=== PATIENT | female | born 1945 | race African-American/Black ===

== ENCOUNTER 2016-10-08 07:59 | Inpatient (IN) | payer MEDICARE, BC ==
[~2016-10-08] VITALS: Ht 162.6 cm; Wt 73.5 kg
[2016-10-08] MEDS ORDERED: METF500T PO (08:27)
[2016-10-08] MEDS ORDERED: NAPR220T95 PO (08:27)
[2016-10-08] MEDS ORDERED: ASPI-110 PO (08:27)
[2016-10-08] MEDS ORDERED: LEVO50TA4 PO (08:27)
[2016-10-08] MEDS ORDERED: RANI150C PO (08:27)
[2016-10-08] MEDS ORDERED: FEXO15TA PO (08:27)
[2016-10-08] MEDS ORDERED: MULT1TAB84 PO (08:27)
[2016-10-08] MEDS ORDERED: BIOT50005 PO (08:27)
[2016-10-08] MEDS ORDERED: BISO2.5T4 PO (08:27)
[2016-10-08] MEDS ORDERED: VITA100T15 PO (08:27)
[2016-10-08] MEDS ORDERED: DOCU100C PO (08:28)
[2016-10-18] MEDS ORDERED: ceFAZolin 2 GM PREMIX 50 ML ONE (06:04)
[2016-10-18] MEDS: EXPAREL PERI-ARTICULAR INJECTION (TOTAL VOL. 60 ML) P-ARTICULR SCH ×4 (06:15→07:45)
[2016-10-18] MEDS ORDERED: METOPROLOL TARTRATE 25 MG TAB PO PRN (06:15)
[2016-10-18] MEDS: SODIUM CHLORIDE 0.9% IV SCH ×2 (06:15→07:15)
[2016-10-18] MEDS ORDERED: SODIUM CHLORID 0.9% 500 ML IV SCH (06:15)
[2016-10-18] MEDS ORDERED: ceFAZolin 2 GM PREMIX 50 ML IV SCH (06:15)
[2016-10-18] MEDS: CHLORHEXIDINE GLUCONATE 4% SOLN 120 ML BTL TOP SCH (06:15)
[2016-10-18] MEDS: TRANEXAMIC ACID IV SCH ×2 (06:15→07:15)
[2016-10-18] MEDS ORDERED: INSULIN HUMAN REGULAR 1,000 UNITS/10 ML VIAL SQ PRN (06:15)
[2016-10-18 06:17] VITALS: BP 113/69; PULSE 61; RESP 16; TEMP 97.5; O2SAT 100
[2016-10-18] MEDS: LACTATED RINGER'S 1000 ML IV SCH (06:20)
[2016-10-18] MEDS ORDERED: GENTAMICIN SULFATE 80 MG/2 ML VIAL IRRIGATION ONE (07:45)
[2016-10-18] MEDS ORDERED: TRANEXAMIC ACID IV SCH ×2 (09:15→10:15)
[2016-10-18] MEDS ORDERED: SODIUM CHLORIDE 0.9% IV SCH ×2 (09:15→10:15)
[2016-10-18] MEDS ORDERED: BISACODYL 10 MG SUPP PR PRN (09:45)
[2016-10-18] MEDS ORDERED: MORPHINE SULFATE 8 MG/ML INJ IV PUSH PRN (09:45)
[2016-10-18] MEDS ORDERED: ONDANSETRON HCL 4 MG/2 ML VIAL IVP PRN (09:45)
[2016-10-18] MEDS ORDERED: FAMOTIDINE 20 MG TAB PO PRN (09:45)
[2016-10-18] MEDS ORDERED: DOCUSATE SODIUM 100 MG CAP PO PRN (09:45)
[2016-10-18] MEDS ORDERED: SODIUM CHLORIDE 0.9% FLUSH 5 ML FLUSH IVF PRN (09:45)
[2016-10-18] MEDS ORDERED: ZOLPIDEM TARTRATE 5 MG TAB PO PRN (09:45)
[2016-10-18] MEDS ORDERED: ACETAMINOPHEN/HYDROcodone 325 MG/7.5 MG TAB PO PRN ×2 (09:45)
[2016-10-18] MEDS ORDERED: Post-op Orders (for Pharmacy) MISC XX ONE (09:45)
[2016-10-18] MEDS ORDERED: MAGNESIUM HYDROXIDE SUSP 30 ML CUP PO PRN (09:45)
[2016-10-18] MEDS ORDERED: LORATADINE 10 MG TAB PO PRN (10:00)
[2016-10-18] MEDS ORDERED: PILL SPLITTER OTHER PRN (10:00)
[2016-10-18] MEDS: KETOROLAC TROMETHAMINE 30 MG/ML (IVP) VIAL IVP SCH ×3 (10:00→21:45)
[2016-10-18] MEDS: LACTATED RINGER'S 1000 ML INJ 1,000 ML IV SCH (10:23)
[2016-10-18] MEDS ORDERED: DO NOT ADM ANY ANTICOAGULANT DRUGS XX PRN (10:30)
--- NOTE | 2016-10-18 10:32 | RADRPT ---
EXAM DATE/TIME: 10/18/2016 09:55 [place] COMPARISON: No previous studies available for comparison. INDICATIONS : Post op left hip. MEDICAL HISTORY : Diabetes mellitus type II. Hypertension SURGICAL HISTORY : Colon resection. Right knee scope, left hip replacement. ENCOUNTER: Subsequent ACUITY: 1 day PAIN SCORE: 10/10 LOCATION: Left hip FINDINGS: A two view examination of the left hip was performed. There is placement of total hip prosthesis whi ch appears to be well seated with a small amount of air in superficial soft tissues CONCLUSION: Total hip prosthesis well seated Noe Kang MD on October 18, 2016 at 10:30 Board Certified Radiologist. This report was verified electronically.
--- NOTE | 2016-10-18 10:43 | MP ---
cc: Uma ROWLEY. DATE OF SURGERY: 10/18/2016 PREOPERATIVE DIAGNOSIS Primary osteoarthritis, left hip. POSTOPERATIVE DIAGNOSIS Primary osteoarthritis, left hip. OPERATION PERFORMED Left total hip arthroplasty with Serina prosthesis. SURGEON Adalgisa Rowley MD PRODUCT TECHNICIAN Trish Ordonez, CSFA ANESTHESIA Spinal with supplemental local. INDICATIONS AND FINDINGS This 71-year-old woman has had left hip pain since the . For the past five years she has had progressive worsening of her pain to the point that she has marked limitation of walking. She has pain on motion. She has catching sensation. She has limitation of motion. She has rest pain as well. Treatment has included analgesics, anti-inflammatory agents, activity modification, exercise, ambulatory aids and weight loss. Physical findings showed limited range of motion with crepitation on motion and tenderness on motion. She had an antalgic gait with a positive Marcos test. X-rays showed significant arthritis in the hip with loss of articular cartilage to expose subchondral bone, possibility of some protrusio, eburnation, osteophytes. IMPLANTS The prosthesis used was a Cantrall prosthesis with the acetabular component being a tritanium hemispherical cluster hole cup size 50 mm outer diameter with an X3 Trident polyethylene insert, size 32 mm inner diameter 0 degree. There were three cancellus screws used. In addition, the femoral component was an Accolade II, stem size 3 x 132 degrees. The femoral head was a Biolox Delta head, 32 mm outer diameter with a +4 mm neck length. PROCEDURE The patient was brought to the operating room and a spinal anesthetic was administered. She received prophylactic antibiotics in the form of Ancef and also received tranexamic acid according to protocols. She was then placed in a lateral position with an axillary roll under the right shoulder. The left shoulder was up. The positioning was done on a Protonet lateral positioner. The patient was then prepped with alcohol, Hibiclens and ChloraPrep, and draped in the usual manner with the hip draped free. An appropriate timeout procedure was carried out. Local anesthesia was administered into the incision site which was marked prior to the incision. The incision was then made centered over the posterior aspect of the greater trochanter tip and was approximately 10-12 cm in length. The incision was deepened through subcutaneous tissues to the fascia jade and gluteus fascia which were incised in line with the fibers and the skin incision. A Charnley retractor was inserted with wound towels. The hip was internally rotated. The external rotators were released off the posterior aspect of the greater trochanter along with posterior capsule which was opened with a posteriorly based flap. The hip was exposed. The hip was dislocated. The femoral neck was then transected at the appropriate level with the oscillating saw. The configuration of the neck was inspected. A rongeur was used to remove osteophytes. The box osteotome was used to initiate opening of the canal followed by further opening with a rongeur. A canal finding curet was used to open this further. Broaching was then started at size 0 and went in one size increments up to size 3. A size 3 appeared to be appropriate and was seated appropriately. Calcar planing was carried out. The hip was then repositioned. The acetabulum was exposed. Reaming of the acetabulum started at 44 mm and went in 1 mm increments up to size 50. At size 50 the trial prosthesis was impacted into place and appeared appropriate. A 50 mm cup was chosen. The acetabulum was irrigated. The cup was then impacted into place and seated appropriately. When it was seated fenestration drill holes were made through the three fenestrations in the cup. Appropriate size screws were inserted for each. The 0 degree liner for a 32 mm inner diameter was inserted into place and seated appropriately. A trial reduction was then carried out ultimately appearing to be appropriate for a +4 mm neck length. The broach was removed. The actual prosthesis which was a size 3 x 132 degrees was impacted into place and seated appropriately. Local anesthesia was administered throughout the hip prior to placement of the femoral component. Trial reduction was carried out with a +4 mm trial. This appeared appropriate. After cleaning the trunnion the +4 mm neck length, 32 mm diameter Biolox Delta head was impacted onto the trunnion. The hip was reduced. The range of motion was excellent. The stability was excellent. There was no pistoning. The leg lengths appeared appropriate. Wound closure then commenced using #1 Vicryl interrupted transosseous Krackow sutures for repair of the capsule and external rotators. The sciatic nerve had been inspected prior to the procedure and was protected throughout the procedure. The fascia jade and gluteus fascia were repaired with #1 Vicryl interrupted [id number] sutures. The remainder of the Exparel was injected. The subcutaneous tissue was closed with 2-0 Vicryl interrupted simple sutures with buried knots. The skin was closed with continuous subcuticular closure of 4-0 Monocryl. The wound was then dressed with Steri-Strips followed by dry dressing, ABD pad and Medipore compression dressing. The patient was transferred from the operating room to the recovery room in satisfactory condition having tolerated the procedure well. Counts were correct. Specimens none. Estimated blood loss 200 mL. MD MARTHA Chavis/BHAVANA /9:44 AM /10:26 AM
[2016-10-18] MEDS ORDERED: LACTATED RINGER'S 1000 ML INJ 1,000 ML IV ONE (12:00)
[2016-10-18] MEDS ORDERED: PROPOFOL 200 MG/20 ML AMP IV ONE (12:00)
[2016-10-18] MEDS ORDERED: NORMOSOL R INJ 1,000 ML IV ONE (12:00)
[2016-10-18] MEDS ORDERED: ONDANSETRON HCL 4 MG/2 ML VIAL IV PUSH ONE (12:00)
[2016-10-18 13:13] VITALS: BP 123/66; PULSE 75; RESP 16; TEMP 95.7; O2SAT 98
[2016-10-18 16:00] VITALS: BP 124/61; PULSE 69; RESP 16; TEMP 95.8; O2SAT 100
[2016-10-18 20:09] VITALS: BP 115/55; PULSE 71; RESP 19; TEMP 97.4; O2SAT 100
[2016-10-18] MEDS: ASPIRIN EC 81 MG TABEC PO SCH (21:47)
[2016-10-18] MEDS: SENNOSIDES 8.6 MG TAB PO SCH (21:48)
[2016-10-18] MEDS: MAGNESIUM HYDROXIDE SUSP 30 ML CUP PO SCH (21:48)
[2016-10-18] MEDS: SODIUM CHLORIDE 0.9% FLUSH 5 ML FLUSH IVF SCH (21:50)
[2016-10-19 00:08] VITALS: BP 121/69; PULSE 74; RESP 18; TEMP 97.5; O2SAT 98
[2016-10-19] MEDS: KETOROLAC TROMETHAMINE 30 MG/ML (IVP) VIAL IVP SCH ×4 (03:12→21:21)
[2016-10-19 04:11] VITALS: BP 142/71; PULSE 71; RESP 19; TEMP 96.9; O2SAT 100
[2016-10-19] MEDS: LEVOTHYROXINE SODIUM 50 MCG TAB PO SCH (06:00)
[2016-10-19 06:02] LABS: HEMATOCRIT 32.6 % (35.0-46.0); MEAN CELL VOLUME 88.4 FL (80.0-100.0); MEAN CORPUSCULAR HEMOGLOBIN 30.4 PG (27.0-34.0); MEAN CORPUSCULAR HGB CONC 34.4 % (32.0-36.0); PLATELET COUNT 228 TH/MM3 (150-450); RED BLOOD COUNT 3.69 MIL/MM3 (4.00-5.30); RED CELL DISTRIBUTION WIDTH 14.4 % (11.6-17.2); REVIEW FLAG FINAL
[2016-10-19] MEDS: LACTATED RINGER'S 1000 ML IV SCH (06:15)
[2016-10-19] MEDS: CHLORHEXIDINE GLUCONATE 4% SOLN 120 ML BTL TOP SCH (06:15)
--- NOTE | 2016-10-19 06:22 | PD.ORT.PN ---
Subjective Post Op Day #: 1 Subjective Remarks Doing well. She has had no pain. Distance Walked 50 feet. Objective Vitals Vital Signs Date Time Temp Pulse Resp B/P Pulse Ox O2 Delivery O2 Flow Rate FiO2 10/19/16 04:11 96.9 71 19 142/71 100 10/19/16 00:08 97.5 74 18 121/69 98 10/18/16 20:09 97.4 71 19 115/55 100 10/18/16 16:00 95.8 69 16 124/61 100 10/18/16 13:13 95.7 75 16 123/66 98 10/18/16 12:30 98.3 65 14 115/70 96 Room Air 10/18/16 12:30 98.3 10/18/16 12:15 70 13 124/70 98 Room Air 10/18/16 12:00 63 12 120/70 95 Room Air 10/18/16 11:45 59 14 125/73 97 Room Air 10/18/16 11:30 62 13 138/74 97 Room Air 10/18/16 11:15 55 12 130/78 96 Room Air 10/18/16 11:00 96.6 10/18/16 11:00 54 12 145/84 97 Room Air 10/18/16 10:45 56 12 146/78 96 Room Air 10/18/16 10:30 96.0 10/18/16 10:30 69 13 169/78 99 Room Air 10/18/16 10:15 60 12 157/89 99 Nasal Cannula 2 10/18/16 10:00 66 14 138/86 96 Nasal Cannula 2 10/18/16 09:40 96.4 103 15 128/78 100 Nasal Cannula 2 I/O 10/18/16 10/18/16 10/18/16 10/19/16 10/19/16 10/19/16 07:00 15:00 23:00 07:00 15:00 23:00 Intake Total 2040 ml 480 ml Output Total 200 ml Balance 1840 ml 480 ml Intake Oral 540 ml 480 ml Other 1500 ml Output Estimated Blood Loss 200 ml # Voids 1 4 # Bowel Movements 0 0 Result Diagram: 10/19/16 0533 Imaging Hip x-ray looks good. Last 72 hours Impressions Hip X-Ray 10/18/16 0000 Signed Impressions: Service Date/Time: Tuesday, October 18, 2016 09:55 - CONCLUSION: Total hip prosthesis well seated Noe Kang MD Objective Remarks She is resting comfortably, supine in bed. The dressing is dry and intact. The neurovascular status is intact. Assessment & Plan Ortho Post Op Day #: 1 Problem List: (1) Status post total replacement of left hip Plan: Continue postop care and PT. Assessment and Plan Orthopaedically stable. Condition: Good. DVT prophylaxis: KARINA stockings, sequentials, ASA. Discharge plans: Home with [facility]. Has appointment. Adalgisa Feldman MD (Charles) Oct 19, 2016 06:22
[2016-10-19 06:27] LABS: BICARBONATE 27.5 MEQ/L (21.0-32.0); POTASSIUM 3.7 MEQ/L (3.5-5.1)
[2016-10-19] MEDS ORDERED: HYDR-3580 PO (06:40)
[2016-10-19 08:12] VITALS: BP 122/58; PULSE 70; RESP 16; TEMP 95.9; O2SAT 100
--- NOTE | 2016-10-19 08:25 | MB ---
cc: DEEPAK HAMILTON DATE OF CONSULTATION 10/18/16 DATE OF 1945 REASON FOR CONSULTATION Medical management. HISTORY OF PRESENT ILLNESS This is a pleasant 71-year-old black female who has struggled with hip pain since the according to her record. For the past 5 years she has progressively become worse with limited ambulation and increased pain. She has tried outpatient treatment which has included analgesics, anti-inflammatory agent, exercise, activity modification but feels that these therapies have not been advantageous to her. She had decided on a left total hip arthroplasty. She is currently in her room postoperative, sitting up in the chair, multiple family members in the room. She is alert, cooperative. Denies any chest pain, no shortness of breath. No headache. No acute pain at this point. She responds well to verbal stimuli and a good historian. PAST MEDICAL HISTORY Includes hypertension, osteoarthritis, hypothyroidism, occasional reflux and gastroesophageal reflux disease, anxiety disorder, musculoskeletal chest pain and shoulder pain. Diabetes mellitus type 2, takes oral hypoglycemics non-insulin dependent. PAST SURGICAL HISTORY Right knee scope, cervical cone biopsy. ALLERGIES No known. MEDICATIONS 1. Levothyroxine. 2. Biotin. 3. Vitamin B12. 4. Aspirin. 5. Multivitamins. 6. Zantac. 7. Metformin. 8. Hydrochlorothiazide. 9. Fexofenadine for allergies. SOCIAL HISTORY The patient lives alone, currently in her own place. Her daughter is here to stay with her for a few weeks postoperative. FAMILY HISTORY Heart disease, joint disease, hypertension, diabetes. No alcohol. No tobacco, no illicit drugs. REVIEW OF SYSTEMS A 12-point review was done. Currently all systems are negative except for some generalized weakness. She is status post left total knee hip arthroplasty. PHYSICAL EXAMINATION VITAL SIGNS: Temperature 98.3, pulse 75, respirations 16, blood pressure 123/66 and 115/70. The patient is on room air, O2 sat 98. HEENT: Atraumatic, normocephalic. PERRLA at two. Mucous membranes are pink and moist. She has no drainage or exudate. Neck is supple. Trachea is midline. CARDIOVASCULAR: S1-S2 with a regular rate and rhythm. No murmurs, rubs or gallops. Shows no edema and her pulses are intact. PULMONARY: Essentially clear anteriorly and posteriorly with no wheezes, rales or rhonchi. ABDOMEN: Abdomen is soft, nontender, nondistended. Active bowel sounds in all four quads. MUSCULOSKELETAL: She moves her extremities with purpose. Her hand implementation manager are equal. She does have some guarding towards that left hip but she can move her extremity and toes on command. SKIN: Skin is pink mucous membranes, warm and dry. NEUROLOGICALLY: She is alert, cooperative and a good historian. DIAGNOSTIC DATA Done on 10/08/2016 showed white count 5.3, hemoglobin 11.9, hematocrit 35.7, platelet count 248. Sodium 139, potassium 3.7, chloride 103, BUN 14, creatinine 0.99, fasting glucose was 105. Urine was yellow, clear, pH 5.5, specific gravity 1.011, negative protein, glucose, ketones, a trace of occult blood, negative nitrites and bilirubin. Negative leukocyte esterase. Culture was not indicated on the specimen. IMAGING STUDIES Imaging shows a total hip prosthesis, well seated. ASSESSMENT/PLAN The patient is status post left total hip arthroplasty, hypertension, hypothyroidism, gastroesophageal reflux disease, diabetes type 2. Our plan is to reconcile any medications needed for pain management and postop care will be per ortho, CBC and BMP will be done in the morning. Her vital signs are q. four as warranted. She has p.r.n. medications ordered for her bowel regimen. ASA for DVT prophylaxis. Pepcid for PUD prophylaxis. The patient is on a regular ADA diet, SCDs. Will monitor any nutritional needs, as well as vital signs. Currently, the patient is afebrile, blood pressure, pulse and respirations are within normal limits. We will monitor her labs in the morning and take care of any medical needs she has. Thank you very much for this consultation. Dictated by KASSIE Bhakta Deepak Hamilton MD JP/PENNY /3:45 PM /8:25 AM PT SEEN AND EXAMINED ON DAY OF ADMISSION WITH RN AT BEDSIDE CHART WAS REVIEWED PLAN OF CARE CHRISTINA VASQUEZ PT CHRISTINA RN SEE ORDERS MTDD
[2016-10-19] MEDS: HYDROCHLOROTHIAZIDE 25 MG TAB PO SCH (08:58)
[2016-10-19] MEDS: MAGNESIUM HYDROXIDE SUSP 30 ML CUP PO SCH ×2 (08:58→21:23)
[2016-10-19] MEDS: metFORMIN HCL 500 MG TAB PO SCH (08:58)
[2016-10-19] MEDS: ASPIRIN EC 81 MG TABEC PO SCH ×2 (08:59→21:22)
[2016-10-19] MEDS: MULTIVITAMINS/MINERALS THERAPEUTIC TAB PO SCH (08:59)
[2016-10-19] MEDS ORDERED: NON-FORMULARY DRUG (Biotin 5,000 MCG) PO SCH (09:00)
[2016-10-19] MEDS ORDERED: NON-FORMULARY DRUG (Bisoprolol-Hydrochlorothiazide 1 TAB) PO SCH (09:00)
[2016-10-19] MEDS: SODIUM CHLORIDE 0.9% FLUSH 5 ML FLUSH IVF SCH ×2 (09:02→21:23)
[2016-10-19] MEDS: BISOPROLOL FUMARATE 5 MG TAB PO SCH (09:05)
[2016-10-19] MEDS: LACTATED RINGER'S 1000 ML INJ 1,000 ML IV SCH ×2 (10:31→23:01)
[2016-10-19] MEDS ORDERED: GLUCAGON 1 MG/ML VIAL OTHER PRN (12:00)
[2016-10-19] MEDS ORDERED: DEXTROSE 50% IN WATER 50 ML VIAL(D50) IV PUSH PRN (12:00)
--- NOTE | 2016-10-19 12:00 | HHI.PR ---
Subjective Remarks Up in chair Appetite good Pain minimal No headache No shortness of breath Alert oriented (Padmini Spear) Objective Objective Results - Vital Signs Date Time Temp Pulse Resp B/P Pulse Ox O2 Delivery O2 Flow Rate FiO2 10/19/16 08:12 95.9 70 16 122/58 100 10/19/16 07:50 Room Air 10/19/16 04:11 96.9 71 19 142/71 100 10/19/16 00:08 97.5 74 18 121/69 98 10/18/16 20:09 97.4 71 19 115/55 100 10/18/16 16:00 95.8 69 16 124/61 100 10/18/16 13:13 95.7 75 16 123/66 98 10/18/16 12:30 98.3 65 14 115/70 96 Room Air 10/18/16 12:30 98.3 10/18/16 12:15 70 13 124/70 98 Room Air 10/18/16 12:00 63 12 120/70 95 Room Air I/O 10/18/16 10/18/16 10/18/16 10/19/16 10/19/16 10/19/16 07:00 15:00 23:00 07:00 15:00 23:00 Intake Total 2040 ml 480 ml 360 ml Output Total 200 ml Balance 1840 ml 480 ml 360 ml Intake Oral 540 ml 480 ml 360 ml Other 1500 ml Output Estimated Blood Loss 200 ml # Voids 1 4 2 # Bowel Movements 0 0 0 (Padmini Spear) Result Diagram: 10/19/1633 10/19/16 0533 ROS General: Fatigue (minimal), Other (10 point ROS done, and animal weakness otherwise other systems are negative) (Padmini Spear) Physical Exam Physical Exam PHYSICAL EXAMINATION GENERAL: This is a well-developed, well-nourished female who appears to be in no acute distress. She is alert and awake, responds readily. HEAD: Normocephalic without any lesion or mass noted. Facial features appear symmetric. OROPHARYNGEAL: Oropharynx without erythema or edema. NECK: Supple. No nuchal rigidity or lymphadenopathy. Trachea midline without deviation. CARDIAC: Regular rhythm, regular rate, S1 and S2 are heard. Murmur none; no gallops or rubs. LUNGS: Clear to auscultation bilaterally. No wheeze, rhonchi or rale. No use of accessory muscles on inspiration or expiration. ABDOMEN: Soft, nontender, no organomegaly or masses. Bowel sounds are heard in all four quadrants. No rebound. No guarding. EXTREMITIES: Trace edema left leg edema. Right lower leg no edema Pulses equal bilateral. cyanosis. SCDs on NEUROLOGICAL: Patient mood and affect appropriate. No focal deficit SKIN:Warm and moist Objective Remarks I'm feeling pretty good. Just need to get up with rehabilitation today and figure out what I need to do when I get home tomorrow (Padmini Spear) A/P Assessment and Plan ASSESSMENT/PLAN status post left total hip arthroplasty, hypertension, hypothyroidism, gastroesophageal reflux disease, diabetes type 2. reconcile any medications needed for pain management and postop care will be per ortho, Labs done this a.m. and reviewed much sugar 122. No other acute issues Her vital signs are q.four as warranted. She has p.r.n. medications ordered for her bowel regimen. ASA for DVT prophylaxis. Pepcid for PUD prophylaxis. The patient is on a regular ADA diet, SCDs. Will monitor any nutritional needs accuchecks achs added. Up in chair and having very minimal pain. She will be working with physical therapy today Discharge plan in the morning if everything stable Discussed With: Nurse, Family (patient and daughter), Other (Dr. Lee, she seen on her behalf) (Padmini Spear) Assessment and Plan patient seen and examined agree with above assessment and plan continue current care discussed with patient's family at bed side discussed with Padmini FERNANDO (Tamara Lee MD) Padmini Spear Oct 19, 2016 12:00 Tamara Lee MD Oct 19, 2016 14:30
[2016-10-19 12:15] VITALS: BP 108/65; PULSE 70; RESP 18; TEMP 97.4; O2SAT 98
[2016-10-19 16:00] VITALS: BP 118/64; PULSE 74; RESP 16; TEMP 98.4; O2SAT 97
[2016-10-19] MEDS ORDERED: ASPI81TA11 PO (17:20)
--- NOTE | 2016-10-19 17:26 | HHI.FF ---
Face to Face Verification Diagnosis: (1) Status post total replacement of left hip Physical Therapy Gait training Hip: Total hip, Protocol: Left, Posterior hip precautions, Progress to weight bearing Knee: Full weight bearing Canvas Knee Splint: When in bed & 2 pillows btw thighs Left LE Weight Bearing: WB as tolerated Left LE Range of Motion: Active ROM Nursing Nursing: Dressing changes Dressing Changes: Daily dressing change, Coverderm/Primapore Additional Instructions Remove steristrips on postop day 14. I have seen patient Aviva Fontaine on 10/19/16. My clinical findings support the need for the requested home health care services because: Ltd mobility - disease progression Limited ability to care for self High risk of falls I certify that my clinical findings support that this patient is homebound because: Post-op weakness Unsteady gait/balance Unsafe to leave home unassisted Adalgisa Feldman MD (Charles) Oct 19, 2016 17:26
[2016-10-19 20:24] VITALS: BP 125/65; PULSE 70; RESP 18; TEMP 97.2; O2SAT 90
[2016-10-19] MEDS: DOCUSATE SODIUM 100 MG CAP PO SCH (21:22)
[2016-10-19] MEDS: SENNOSIDES 8.6 MG TAB PO SCH (21:23)
[2016-10-20 00:09] VITALS: BP 116/58; PULSE 71; RESP 19; TEMP 98.7; O2SAT 98
[2016-10-20 04:48] VITALS: BP 120/56; PULSE 73; RESP 19; TEMP 97.6; O2SAT 98
[2016-10-20] MEDS: KETOROLAC TROMETHAMINE 30 MG/ML (IVP) VIAL IVP SCH (05:19)
[2016-10-20] MEDS: LEVOTHYROXINE SODIUM 50 MCG TAB PO SCH (05:20)
[2016-10-20] MEDS: LACTATED RINGER'S 1000 ML IV SCH (06:15)
[2016-10-20] MEDS: CHLORHEXIDINE GLUCONATE 4% SOLN 120 ML BTL TOP SCH (06:15)
[2016-10-20 07:05] LABS: HEMATOCRIT 32.3 % (35.0-46.0); REVIEW FLAG FINAL
[2016-10-20 08:00] VITALS: BP 118/60; PULSE 66; RESP 16; TEMP 96.1; O2SAT 100
[2016-10-20] MEDS: MULTIVITAMINS/MINERALS THERAPEUTIC TAB PO SCH (09:01)
[2016-10-20] MEDS: HYDROCHLOROTHIAZIDE 25 MG TAB PO SCH (09:01)
[2016-10-20] MEDS: DOCUSATE SODIUM 100 MG CAP PO SCH (09:01)
[2016-10-20] MEDS: MAGNESIUM HYDROXIDE SUSP 30 ML CUP PO SCH (09:02)
[2016-10-20] MEDS: BISOPROLOL FUMARATE 5 MG TAB PO SCH (09:02)
[2016-10-20] MEDS: ASPIRIN EC 81 MG TABEC PO SCH (09:02)
[2016-10-20] MEDS: metFORMIN HCL 500 MG TAB PO SCH (09:02)
[2016-10-20] MEDS: SODIUM CHLORIDE 0.9% FLUSH 5 ML FLUSH IVF SCH (09:02)
[2017-01-20] MEDS ORDERED: AMOX875T PO (13:25)
== END 2016-10-20 11:34 | disposition home health service (06) | DRG 470 ==
LOC: HSDI 10-18 05:27 → N06B 10-18 12:51 → N06A 10-18 21:48
PROVIDERS: ADMIT Orthopaedic Surgery; ATTEND Orthopaedic Surgery
PROC: 0SRB04A Replacement of Left Hip Joint with Ceramic on Polyethylene Synthetic Substitute, Uncemented, Open Approach (ICD-10-PCS; principal; 2016-10-18 06:53)
DX: M16.12 Unilateral primary osteoarthritis, left hip (principal); I10 Essential (primary) hypertension; E03.9 Hypothyroidism, unspecified; E11.9 Type 2 diabetes mellitus without complications; K21.9 Gastro-esophageal reflux disease without esophagitis; Z79.84 Long term (current) use of oral hypoglycemic drugs
CPT/HCPCS: 73502; 80048; 82948; 85014; 85018; 85027; 86850; 86890; 86900; 86901; 86920; 94150; C1776; C9290; J0690; J1580; J1885; J2405; J7120; L1830

== ENCOUNTER → 2016-10-08 | Outpatient (CLI) | payer MEDICARE, BC ==
[~2016-10-08] MED LIST: AMOX875T PO; ASPI-110 PO; ASPI325T24; ASPI81TA11 PO; BIOT50005 PO; BISO2.5T4 PO; DICL25; DOCU100C PO; FEXO15TA PO; GLUCTAB; HYDR-3580 PO; LEVO50TA4 PO; METF500T PO; MULT1TAB84 PO; NAPR220T95 PO; RANI150C PO; SYNT25TA; VITA100T15 PO; ZIAC5TAB
[2016-10-08 08:37] LABS: HEMATOCRIT 35.7 % (35.0-46.0); MEAN CELL VOLUME 90.1 FL (80.0-100.0); MEAN CORPUSCULAR HEMOGLOBIN 29.9 PG (27.0-34.0); MEAN CORPUSCULAR HGB CONC 33.2 % (32.0-36.0); PLATELET COUNT 248 TH/MM3 (150-450); RED BLOOD COUNT 3.97 MIL/MM3 (4.00-5.30); RED CELL DISTRIBUTION WIDTH 14.3 % (11.6-17.2); REVIEW FLAG FINAL; WHITE BLOOD COUNT 5.3 TH/MM3 (4.0-11.0)
[2016-10-08 08:49] LABS: APTT (PATIENT) 24.2 SEC (24.3-30.1); PROTHROMBIN TIME - PATIENT 11.1 SEC (9.8-11.6)
[2016-10-08 10:10] LABS: BLOOD, URINE TRACE (NEG); COMMENT (UR) CATH-CULT NOT IND; CULTURE IF INDICATED CATH CULTURE NOT IND; GLUCOSE,URINE NEG (NEG); KETONE, URINE NEG (NEG); NITRITE,URINE NEG (NEG); PH, URINE 5.5 (5.0-8.5); SQUAMOUS EPITHELIAL CELL URINE <1 /hpf (0-5); TRANSITIONAL EPI CELLS, URINE <1 /hpf; URINE COLOR YELLOW (YELLW/STRAW)
[2016-10-08 11:09] LABS: BICARBONATE 26.7 MEQ/L (21.0-32.0); POTASSIUM 3.7 MEQ/L (3.5-5.1)
--- NOTE | 2016-10-09 13:16 | EKG ---
Date Performed: 10/08/2016 Time Performed: 09:03:13 PTAGE: 71 years EKG: Sinus rhythm NORMAL ECG Compared to prior tracing no significant change PREVIOUS TRACING 08/30/2016 @22.18.59 DOCTOR: Eddie Le Interpretating Date/Time 10/09/2016 13:14:54
== END ==
LOC: CPRE 07:53
PROVIDERS: ATTEND Orthopaedic Surgery
DX: Z01.810 Encounter for preprocedural cardiovascular examination (principal); Z01.812 Encounter for preprocedural laboratory examination; M16.12 Unilateral primary osteoarthritis, left hip; M79.609 Pain in unspecified limb; I10 Essential (primary) hypertension
CPT/HCPCS: 36415; 80048; 81001; 85027; 85610; 85730; 93005